=== PATIENT | female | born 1975 | race Two or more races ===

== ENCOUNTER 2023-01-15 05:22 | Day surgery (SDC) | payer OTHER ==
[~2023-01-15] VITALS: Ht 152.4 cm; Wt 61.2 kg
[~2023-01-15 05:22] MED LIST: COZAAR25 MG; COZAAR25 MG PO
[2023-01-15] MEDS ORDERED: OXYC1TAB9 PO (08:34)
== END 2023-01-15 11:25 | disposition home or self-care (01) ==
LOC: CIR.AMB 05:22
PROVIDERS: ATTEND Surgery
DX: K64.8 Other hemorrhoids (principal); K64.4 Residual hemorrhoidal skin tags; K62.5 Hemorrhage of anus and rectum; K62.89 Other specified diseases of anus and rectum; B96.81 Helicobacter pylori [H. pylori] as the cause of diseases classified elsewhere; R19.4 Change in bowel habit; K21.9 Gastro-esophageal reflux disease without esophagitis; Z20.822 Contact with and (suspected) exposure to COVID-19; I10 Essential (primary) hypertension